=== PATIENT | male | born 1955 | race Caucasian/White ===

== ENCOUNTER 2016-10-27 16:39 | Outpatient (CLI) | payer OTHER ==
[2016-01-20 11:09] VITALS: BP 152/72
--- NOTE | 2016-10-27 18:59 | Diagnostic Imaging Report ---
RASTA SAHU [facility] [address] [facility] [address] [address] Report Submission Date: Oct 27, 2016 6:07:54 PM CDT Patient Study Name: LATA CLAY Date: Oct 27, 2016 4:42:31 PM CDT Modality Type: CR Gender: M Description: LOWER EXTREMITY : 59 Institution: [facility] Physician: RASTA SAHU Examination: Plain film knee History: Knee discomfort Findings: 2 views of the knee demonstrates tibia spine, patellar, and lateral articular spurring. Medial joint space narrowing. No joint effusion. No fracture line identified. Impression: Moderate to advanced degenerative changes. No evidence for fracture. If suspect soft tissue abnormality/injury, consider obtaining MRI. Electronically signed on Oct 27, 2016 6:07:54 PM CDT by: Hammad CORONADO
== END 2016-10-27 16:40 ==
LOC: RAD 16:39
PROVIDERS: ATTEND Physician Assistant
DX: M25.561 Pain in right knee (principal)
CPT/HCPCS: 73560

== ENCOUNTER 2018-06-28 09:35 | Outpatient (CLI) | payer OTHER ==
[2016-01-20 11:09] VITALS: BP 152/72
--- NOTE | 2018-06-28 11:52 | Diagnostic Imaging Report ---
MAGDA STANFORD ([facility]) - OP [facility] [address] [facility].[address] [address] Report Submission Date: Jun 28, 2018 10:49:04 AM CDT Patient Study Name: LATA CLAY Date: Jun 28, 2018 9:41:39 AM CDT Modality Type: DX Gender: M Description: CHEST 2VIEW : 59 Institution: [facility] Physician: MAGDA STANFORD ([facility]) - OP Examination: PA and lateral chest. History: Evaluate lung acosta. COUGH, SOA, FULLNESS X3-4 DAYS, NON-SMOKER X5 YEARS Comparison exam: None provided. Findings: PA and lateral views of the chest demonstrates a normal cardiac and mediastinal silhouette. Mildly tortuous aorta. Chronic interstitial changes. No focal infiltrate. No blunting of the costophrenic margins. Osseous structures are appropriate for age. Impression: Chronic interstitial changes. No acute pulmonary process. Electronically signed on Jun 28, 2018 10:49:04 AM CDT by: Hammad CORONADO
== END 2018-06-28 09:36 ==
LOC: RAD 09:35
PROVIDERS: ATTEND Nurse Practitioner Family
DX: R05 Cough (principal); R06.02 Shortness of breath
CPT/HCPCS: 71046

== ENCOUNTER 2018-07-07 09:39 | Outpatient (CLI) | payer OTHER ==
[2016-01-20 11:09] VITALS: BP 152/72
[2018-07-07 10:35] LABS: MEAN CORPUSCULAR HEMOGLOBIN 28.7 pg (28.0-34.0)
[2018-07-07 10:37] LABS: SEGMENTED NEUTROPHILS % 73 % (39-79)
[2018-07-07 10:38] LABS: EOSINOPHILS % 1 % (0-7); MONOCYTES % 5 % (0-11)
[2018-07-07 10:39] LABS: PLT EST. EST. AGREES W/PLT CT
[2018-07-07 10:40] LABS: eGFR (Non-African) > 60
== END 2018-07-07 09:45 ==
LOC: LAB 09:39
PROVIDERS: ATTEND Nurse Practitioner Family
DX: I27.0 Primary pulmonary hypertension (principal); R60.0 Localized edema
CPT/HCPCS: 36415; 80053; 83880; 85025

== ENCOUNTER 2019-01-26 07:21 | Outpatient (CLI) | payer OTHER ==
[2016-01-20 11:09] VITALS: BP 152/72
[2019-01-26 08:32] LABS: BASOPHILS % 0.3 % (0.0-1.5); HYPOCHROMASIA 2+ (NEGATIVE); NEUTROPHILS # 5.9 # k/uL (1.4-7.7); SEGMENTED NEUTROPHILS % 63 % (39-79); STOMATOCYTES 1+ (NEGATIVE)
== END 2019-01-26 07:26 ==
LOC: LAB 07:21
PROVIDERS: ATTEND Nurse Practitioner Family
DX: R71.0 Precipitous drop in hematocrit (principal)
CPT/HCPCS: 36415; 85025

== ENCOUNTER 2019-01-30 10:08 | Outpatient (CLI) | payer OTHER ==
[2016-01-20 11:09] VITALS: BP 152/72
[2019-01-30 11:26] LABS: BASOPHILS % 0.5 % (0.0-1.5); HYPOCHROMASIA 2+ (NEGATIVE); NEUTROPHILS # 6.8 # k/uL (1.4-7.7); SEGMENTED NEUTROPHILS % 70 % (39-79); STOMATOCYTES 1+ (NEGATIVE)
== END 2019-01-30 10:13 ==
LOC: LAB 10:08
PROVIDERS: ATTEND Nurse Practitioner Family
DX: R71.0 Precipitous drop in hematocrit (principal)
CPT/HCPCS: 36415; 85025

== ENCOUNTER 2019-02-06 07:32 | Outpatient (CLI) | payer OTHER ==
[2016-01-20 11:09] VITALS: BP 152/72
[2019-02-06 07:59] LABS: BASOPHILS % 0.7 % (0.0-1.5); NEUTROPHILS # 6.6 # k/uL (1.4-7.7)
== END 2019-02-06 07:37 ==
LOC: LAB 07:32
PROVIDERS: ATTEND Nurse Practitioner Family
DX: R71.0 Precipitous drop in hematocrit (principal)
CPT/HCPCS: 36415; 85025

== ENCOUNTER 2019-02-12 07:13 | Outpatient (CLI) | payer OTHER ==
[2016-01-20 11:09] VITALS: BP 152/72
[2019-02-12 07:47] LABS: BASOPHILS % 0.4 % (0.0-1.5); NEUTROPHILS # 5.4 # k/uL (1.4-7.7)
== END 2019-02-12 07:18 ==
LOC: LAB 07:13
PROVIDERS: ATTEND Nurse Practitioner Family
DX: R71.0 Precipitous drop in hematocrit (principal)
CPT/HCPCS: 36415; 85025